=== PATIENT | female | born 1940 | race Caucasian/White ===

== ENCOUNTER → 2017-10-31 | Outpatient (CLI) | payer OTHER | LOC: BMCIMAGING 13:39 | PROVIDERS: ATTEND Physician Assistant | DX: M23.91 Unspecified internal derangement of right knee (principal) ==

== ENCOUNTER → 2018-05-06 | Outpatient (CLI) | payer OTHER | LOC: FIMAGING 18:18 | PROVIDERS: ATTEND Physician Assistant | DX: M23.251 Derangement of posterior horn of lateral meniscus due to old tear or injury, right knee (principal); M71.21 Synovial cyst of popliteal space [Baker], right knee ==